=== PATIENT | male | born 1990 | race Caucasian/White ===

== ENCOUNTER 2016-02-22 22:41 | Emergency (ER) | payer OTHER ==
[2016-02-22 22:51] VITALS: BP 132/83; TEMP 98.4
[2016-02-22] MEDS ORDERED: methylPREDNISolone SOD SUCCI 125 MG/2 ML VIAL IV STA (23:01)
[2016-02-22] MEDS ORDERED: diphenhydrAMINE 50 MG/ML 1 ML VIAL IVP STA (23:01)
[2016-02-22] MEDS ORDERED: SODIUM CHLORIDE 0.9% 1,000 ML IV STA (23:01)
[2016-02-22] MEDS ORDERED: FAMOTIDINE 20 MG/2 ML VIAL IV STA (23:01)
--- NOTE | 2016-02-22 23:10 | ED ---
Allergic Reaction HPI - General Chief complaint: Allergic Reaction Stated complaint: allergic reaction-shrimp/swelling throat Time Seen by Provider: 02/22/16 22:52 Source: patient, RN notes reviewed Mode of arrival: ambulatory - History of Present Illness Initial Comments: 25-year-old male presents to the emergency Department chief complaint of concern for ALLERGIC reaction. Patient states that he ate shrimp tonight and then his face started to swell. Patient states he consumed that shrimp about 3 hours ago. Patient states he then started to have some facial swelling and he noticed some throat irritation. Patient states he took some Benadryl. Patient states he feels like he can breathe he just noticed a little tightness. Patient states his mother had similar reaction to shrimp. Patient states she's never had a reaction like this before. Patient states he is not currently having any other symptoms. Patient notes a itchy rash to the trunk. Patient denies any recent fever, chills, shortness of breath, chest pain, back pain, abdominal pain, nausea vomiting, numbness or tingling, dysuria or hematuria, constipation or diarrhea, headaches or visual changes, or any other current symptoms. - Related Data Previous Rx's Medication Instructions Recorded Famotidine [Pepcid] 20 mg PO BID #10 tablet 02/22/16 diphenhydrAMINE [Benadryl] 50 mg PO HS PRN #5 capsule 02/22/16 predniSONE 50 mg PO DAILY #5 tab 02/22/16 Allergies Allergy/AdvReac Type Severity Reaction Status Date / Time No Known Allergies Allergy Verified 02/22/16 22:51 Review of Systems ROS Statement: Those systems with pertinent positive or pertinent negative responses have been documented in the HPI. ROS Other: All systems not noted in ROS Statement are negative. Past Medical History Past Medical History: No Reported History History of Any Multi-Drug Resistant Organisms: None Reported Past Surgical History: Hernia Repair Past Psychological History: No Psychological Hx Reported Smoking Status: Current every day smoker Past Alcohol Use History: Occasional Past Drug Use History: None Reported General Exam General appearance: alert, in no apparent distress Head exam: Present: other (She does have swelling to the face and around the eyes.) Eye exam: Present: PERRL, EOMI ENT exam: Present: normal exam, mucous membranes moist Neck exam: Present: normal inspection. Absent: tenderness, meningismus, lymphadenopathy Respiratory exam: Present: normal lung sounds bilaterally. Absent: respiratory distress, wheezes, rales, rhonchi, stridor Cardiovascular Exam: Present: regular rate, normal rhythm, normal heart sounds. Absent: systolic murmur, diastolic murmur, rubs, gallop, clicks Back exam: Present: normal inspection Neurological exam: Present: alert, oriented X3, CN II-XII intact. Absent: motor sensory deficit Psychiatric exam: Present: normal affect, normal mood Skin exam: Present: warm, dry, intact, urticaria Course Vital Signs 02/22/16 22:48 Temperature 98.4 F Pulse Rate 117 H Respiratory 20 Rate Blood Pressure 132/83 O2 Sat by Pulse 96 Oximetry - Reevaluation(s) Reevaluation #1: 02/22/16 23:46 Patient states that he is feeling better at this time. Medical Decision Making - Medical Decision Making 25-year-old male presents emergency Department chief complaint of ALLERGIC reaction to shrimp. At this time patient does appear to be urticaria type rash. Patient also does appear to have redness to the face. At this time patient did receive that medication here and was watched for an hour. His symptoms aren't improving. This time we discussed continuing outpatient medications as prescribed. Recheck temperature and follow-up. She stated that he understood and all his questions have been answered. He will be discharged home at this time. Disposition Clinical Impression: Allergic reaction, Urticaria Disposition: HOME SELF-CARE Condition: Stable Instructions: Anaphylaxis (ED) Additional Instructions: Please use medication as discussed. Please follow up with family doctor if symptoms have not improved over the next two days. Please return to the emergency room if your symptoms increase or worsen or for any other concerns. Prescriptions: Famotidine [Pepcid] 20 mg PO BID #10 tablet diphenhydrAMINE [Benadryl] 50 mg PO HS PRN #5 capsule PRN Reason: Itching predniSONE 50 mg PO DAILY #5 tab Referrals: Jesus Abernathy MD [Primary Care Provider] - 1-2 days Time of Disposition: 23:46
[2016-02-23 00:13] VITALS: PULSE 95; RESP 16
== END 2016-02-23 00:10 | disposition home or self-care (01) ==
LOC: EC 22:41
DX: T78.1XXA Other adverse food reactions, not elsewhere classified, initial encounter (principal); L50.0 Allergic urticaria; F17.200 Nicotine dependence, unspecified, uncomplicated
CPT/HCPCS: 99284; 96374; 96375 ×2; 96361; J1200; J2930

== ENCOUNTER 2016-05-02 11:23 | Inpatient (IN) | payer OTHER ==
[2016-05-02] MEDS ORDERED: ONDANSETRON 4 MG/2 ML VIAL IVP STA (12:24)
[2016-05-02] MEDS ORDERED: SODIUM CHLORIDE 0.9% 1,000 ML IV STA ×2 (12:24)
[2016-05-02] MEDS ORDERED: FAMOTIDINE 20 MG/2 ML VIAL IV STA (12:24)
--- NOTE | 2016-05-02 12:27 | ED ---
General Adult HPI - General Chief complaint: Abdominal Pain Stated complaint: abdominal pain, sent by dr allen Time Seen by Provider: 05/02/16 12:19 Source: patient, RN notes reviewed Mode of arrival: ambulatory Limitations: no limitations - History of Present Illness Initial comments: Patient 25-year-old male who presents emergency room today with a chief complaint of symptoms of nausea vomiting and epigastric pain. He describes it as "burning". Patient does admit that he was at the doctor's office was given GI cocktail which did relieve his symptoms but on her last for approximately 15 minutes. He does admit to being a daily drinker states he had for 5 years last night before going to bed. This is not drinking this morning. He denies any other complaints or associated symptoms. Patient denies any recent fever, chills , shortness of breath, chest pain, back pain, numbness or tingling, dysuria or hematuria, constipation or diarrhea, headaches or visual changes, or any other complaints. Denies hematemesis. - Related Data Home Medications Medication Instructions Recorded Confirmed No Known Home Medications [No 05/02/16 05/02/16 Known Home Medications] Allergies Allergy/AdvReac Type Severity Reaction Status Date / Time Iodinated Contrast Media - Allergy Anaphylaxis Verified 05/02/16 12:06 Oral and shellfish derived [Shellfish] Allergy Anaphylaxis Verified 05/02/16 12:06 Review of Systems ROS Statement: Those systems with pertinent positive or pertinent negative responses have been documented in the HPI. ROS Other: All systems not noted in ROS Statement are negative. Past Medical History Past Medical History: No Reported History History of Any Multi-Drug Resistant Organisms: None Reported Past Surgical History: Hernia Repair Past Psychological History: No Psychological Hx Reported Smoking Status: Current every day smoker Past Alcohol Use History: Occasional Past Drug Use History: None Reported General Exam - General Exam Comments Initial Comments: General: The patient is awake and alert, in no distress, and does not appear acutely ill. Eye: Pupils are equal, round and reactive to light, extra-ocular movements are intact. No nystagmus. There is normal conjunctiva bilaterally. No signs of icterus. Ears, nose, mouth and throat: There are moist mucous membranes and no oral lesions. Neck: The neck is supple, there is no tenderness or JVD. Cardiovascular: There is a regular rate and rhythm. No murmur, rub or gallop is appreciated. Respiratory: Lungs are clear to auscultation, respirations are non-labored, breath sounds are equal. No wheezes, stridor, rales, or rhonchi. Gastrointestinal: Normal appearance abdomen. Normal bowel sounds. Abdomen soft on palpation. Patient does have mild tenderness epigastric and both left and right upper quadrants. No rebound tenderness. No guarding. No CVA tenderness. Musculoskeletal: Normal ROM, no tenderness. Strength 5/5. Sensation intact. Pulses equal bilaterally 2+. Neurological: A&O x 3. CN II-XII intact, There are no obvious motor or sensory deficits. Coordination appears grossly intact. Speech is normal. Skin: Skin is warm and dry and no rashes or lesions are noted. Psychiatric: Cooperative, appropriate mood & affect, normal judgment. Limitations: no limitations Course Vital Signs 05/02/16 05/02/16 11:58 13:25 Temperature 97.8 F 97.4 F L Pulse Rate 88 86 Respiratory 20 16 Rate Blood Pressure 130/79 147/74 O2 Sat by Pulse 99 100 Oximetry Medical Decision Making - Medical Decision Making Patient reexamined at this time shows no signs of distress. Resting comfortably in the stretcher feeling much more comfortable after IV fluids and pain medication. Patient's labs been reviewed shows mildly elevated AST ALT. Does admit to being a daily drinker. Patient does have elevation of amylase lipase greater than 700 and 6,000 respectively. His results were discussed with patient and his family at bedside. Patient will be admitted to the hospital for pancreatitis. Continued on IV fluids and pain medication. - Lab Data Result diagrams: 05/02/16 12:50 05/02/16 12:50 Lab Results 05/02/16 05/02/16 05/02/16 Range/Units 12:50 12:50 12:56 WBC 12.7 H (3.8-10.6) k/uL RBC 4.61 (4.30-5.90) m/uL Hgb 16.4 (13.0-17.5) gm/dL Hct 49.6 (39.0-53.0) % MCV 107.7 H (80.0-100.0) fL MCH 35.7 H (25.0-35.0) pg MCHC 33.1 (31.0-37.0) g/dL RDW 13.7 (11.5-15.5) % Plt Count 247 (150-450) k/uL Neutrophils % 90 % Lymphocytes % 4 % Monocytes % 5 % Eosinophils % 0 % Basophils % 0 % Neutrophils # 11.5 H (1.3-7.7) k/uL Lymphocytes # 0.4 L (1.0-4.8) k/uL Monocytes # 0.6 (0-1.0) k/uL Eosinophils # 0.1 (0-0.7) k/uL Basophils # 0.0 (0-0.2) k/uL Macrocytosis Moderate Sodium 145 (137-145) mmol/L Potassium 3.9 (3.5-5.1) mmol/L Chloride 103 (98-107) mmol/L Carbon Dioxide 21 L (22-30) mmol/L Anion Gap 21 mmol/L BUN 8 L (9-20) mg/dL Creatinine 0.75 (0.66-1.25) mg/dL Est GFR (MDRD) Af Amer >60 (>60 ml/min/1.73 sqM) Est GFR (MDRD) Non-Af >60 (>60 ml/min/1.73 sqM) Glucose 94 (74-99) mg/dL Calcium 10.7 H (8.4-10.2) mg/dL Total Bilirubin 1.1 (0.2-1.3) mg/dL AST 250 H (17-59) U/L ALT 184 H (21-72) U/L Alkaline Phosphatase 94 (38-126) U/L Total Protein 9.1 H (6.3-8.2) g/dL Albumin 5.5 H (3.5-5.0) g/dL Amylase 700 H* (30-110) U/L Lipase 6495 H (23-300) U/L Urine Color Dark Yellow Urine Appearance Clear (Clear) Urine pH 6.0 (5.0-8.0) Ur Specific [place] 1.026 (1.001-1.035) Urine Protein 2+ H (Negative) Urine Glucose (UA) Negative (Negative) Urine Ketones 3+ H (Negative) Urine Blood Trace H (Negative) Urine Nitrite Negative (Negative) Urine Bilirubin Negative (Negative) Urine Urobilinogen 2.0 (<2.0) mg/dL Ur Leukocyte Esterase Negative (Negative) Urine RBC 8 H (0-5) /hpf Ur Squamous Epith Cells 1 (0-4) /hpf Urine Mucus Many H (None) /hpf Disposition Clinical Impression: Acute pancreatitis Disposition: ADMITTED IP TO THIS HOSP Condition: Good Time of Disposition: 13:43
[2016-05-02 13:06] LABS: Basophils % (A) 0 %; CHCM 34.5; Eosinophils # (A) 0.1 k/uL (0-0.7); Eosinophils % (A) 0 %; HCT 49.6 % (39.0-53.0); HDW 2.17; HGB 16.4 gm/dL (13.0-17.5); Luc # (Auto) 0.11; Luc % (Auto) 1; Lymphocytes # (A) 0.4 k/uL (1.0-4.8); Lymphocytes % (A) 4 %; MCH 35.7 pg (25.0-35.0); MCHC 33.1 g/dL (31.0-37.0); MCV 107.7 fL (80.0-100.0); Macrocytosis Moderate; Mean Platelet Volume 7.5; Monocytes # (A) 0.6 k/uL (0-1.0); Monocytes % (A) 5 %; Neutrophils # (A) 11.5 k/uL (1.3-7.7); Neutrophils % (A) 90 %; RBC 4.61 m/uL (4.30-5.90); RDW 13.7 % (11.5-15.5); WBC 12.7 k/uL (3.8-10.6); WBC (Perox) 12.77
[2016-05-02] MEDS ORDERED: ACETAMINOPHEN IV (For NPO) 1,000 MG in SALINE 100 100ML.BAG IVPB STA (13:13)
[2016-05-02 13:15] LABS: ALT 184 U/L (21-72); AST 250 U/L (17-59); Alkaline Phosphatase 94 U/L (38-126); Anion Gap 21 mmol/L; Blood Urea Nitrogen 8 mg/dL (9-20); Calcium 10.7 mg/dL (8.4-10.2); Carbon Dioxide 21 mmol/L (22-30); Chloride 103 mmol/L (98-107); Glucose 94 mg/dL (74-99); Non-African American GFR(MDRD) >60 (>60 ml/min/1.73 sqM); Potassium 3.9 mmol/L (3.5-5.1); Sodium 145 mmol/L (137-145); Total Bilirubin 1.1 mg/dL (0.2-1.3); Total Protein 9.1 g/dL (6.3-8.2)
[2016-05-02 13:20] LABS: Appearance,Urine Clear (Clear); Bilirubin,Urine Negative (Negative); Glucose,Urine (UA) Negative (Negative); Ketones,Urine 3+ (Negative); Leukocyte Esterase,Urine Negative (Negative); Mucus,Urine Many /hpf; Nitrite,Urine Negative (Negative); Particle Count 13724; Protein,Urine 2+ (Negative); RBC,Urine 8 /hpf (0-5); Specific Gravity,Urine 1.026 (1.001-1.035); Squamous Epithelial Cell,Urine 1 /hpf (0-4); UA Billing (MACRO vs. MICRO) MICRO
[2016-05-02] MEDS ORDERED: LORazepam 2 MG/ML SYRINGE IV STA (13:26)
[2016-05-02 13:27] LABS: Amylase 700 U/L (30-110)
[2016-05-02] MEDS ORDERED: HYDROmorphone 1 MG/ML 1 ML SYRINGE IVP STA (13:27)
[2016-05-02] MEDS ORDERED: ONDANSETRON 4 MG/2 ML VIAL IVP PRN (13:53)
[2016-05-02] MEDS ORDERED: SODIUM CHLORIDE 0.9% 1,000 ML IV ONE (13:53)
[2016-05-02] MEDS ORDERED: NALOXONE 0.4 MG/ML 1 ML VIAL IV PRN (13:53)
[2016-05-02] MEDS ORDERED: THIAMINE 100 MG/ML 2 ML VIAL IM STA (13:55)
[2016-05-02] MEDS ORDERED: LORazepam 2 MG/ML SYRINGE IV PRN ×3 (13:55)
--- NOTE | 2016-05-02 14:35 | XR ---
Abdomen HISTORY: Upper abdomen pain Frontal view of the abdomen on 2 images No comparisons Lung bases are clear. There is no bowel obstruction or pneumoperitoneum. No pathologic calcification. Slight spinal curvature. IMPRESSION: No abnormalities evident
[2016-05-02] MEDS: THIAMINE 100 MG TAB PO SCH (16:30)
[2016-05-02] MEDS: HYDROmorphone 1 MG/ML 1 ML SYRINGE IV PRN ×3 (16:31→21:41)
[2016-05-02 17:55] LABS: Appearance,Urine Clear (Clear); Bilirubin,Urine Negative (Negative); Glucose,Urine (UA) Negative (Negative); Ketones,Urine 3+ (Negative); Leukocyte Esterase,Urine Negative (Negative); Nitrite,Urine Negative (Negative); PH, Urine 6.5 (5.0-8.0); Protein,Urine Negative (Negative); Specific Gravity,Urine 1.014 (1.001-1.035); UA Billing (MACRO vs. MICRO) CHEM; Urobilinogen,Urine <2.0 mg/dL (<2.0)
[2016-05-02] MEDS ORDERED: IOHEXOL 350 MG/ML 25 ML BOTTLE (ORAL USE) PO PRN (18:01)
[2016-05-02 18:24] LABS: INR 1.1 (<1.1)
[2016-05-02] MEDS: BARIUM SULFATE 450 ML ORAL.SUSP BOTTLE PO PRN ×2 (18:55→21:35)
[2016-05-02] MEDS: PANTOPRAZOLE 40 MG/10 ML VIAL IVP SCH (18:55)
[2016-05-02] MEDS ORDERED: SODIUM CHLORIDE 0.9% 1,000 ML BAG ONE (19:16)
[2016-05-02] MEDS: 1: MVI, ADULT NO.4 WITH VIT K 10 ML, THIAMINE 100 MG, FOLIC ACID 1 MG in SODIUM CHLORIDE IV SCH ×4 (19:16)
[2016-05-02] MEDS: HEPARIN SODIUM,PORCINE 5,000 UNIT/ML 1 ML VIAL SQ SCH (20:20)
--- NOTE | 2016-05-02 21:16 | HP ---
DATE OF ADMISSION: 05/02/2016 CHIEF COMPLAINT: Abdominal pain. HISTORY OF PRESENT ILLNESS: This 25-year-old gentleman with a past medical history of heartburn, history of hernia repair, history of motion sickness, being followed by Dr. Jesus Abernathy in the outpatient setting, apparently was drinking significantly. Patient smokes as well. The patient lives at home with his parents and one dog as well. The patient works in [employer] and the patient is also complaining of nausea, vomiting and severe epigastric pain which is described as burning. The GI cocktail did not relieve the symptoms completely, with some partial relief after 15 minutes. Because of concerns, patient was sent to [facility] and admitted for further evaluation and treatment. In the ER, white count was found to be 12.7 and the patient had multiple liver abnormalities, including AST of 250 and ALT 184, indicating alcoholic hepatitis. Amylase and lipase were increased, indicating acute pancreatitis. The patient was admitted for further evaluation and treatment. There is no history of any fever, rigor or chills, no history of headache, loss of consciousness, seizures at this time. PAST MEDICAL HISTORY: 1. History of heartburn. 2. History of hernia repair. 3. History of nicotine dependence as well as alcohol. MEDICATIONS: None. ALLERGIES: 1. IODINATED CONTRAST DYE. 2. SHELLFISH. FAMILY HISTORY: No history of heart disease or strokes in the family. SOCIAL HISTORY: History of smoking as well as alcohol intake, as mentioned earlier. REVIEW OF SYSTEMS: ENT: No diminished hearing. No diminished vision. CARDIOVASCULAR SYSTEM: No angina, palpitations. RESPIRATORY SYSTEM: No cough, hemoptysis. GI: As mentioned earlier. : No dysuria. NERVOUS SYSTEM: No numbness or weakness. ALLERGY/IMMUNOLOGY: No asthma, hayfever. MUSCULOSKELETAL: As mentioned earlier. HEMATOLOGY/ONCOLOGY: No history of anemia. ENDOCRINE: No history of diabetes, hypothyroidism. CONSTITUTIONAL: As mentioned earlier. DERMATOLOGY: Negative. RHEUMATOLOGY: Negative. PSYCHIATRY: As mentioned earlier. PHYSICAL EXAMINATION: Patient is alert and oriented x3. Pulse is 85. Blood pressure is 149/70, respiration 18, temperature 97.4, pulse ox 99% on room air. HEENT: Conjunctivae normal. Oral mucosa moist. NECK: No jugular venous distention. No carotid bruit. No lymph node enlargement. CARDIOVASCULAR SYSTEM: S1, S2 muffled. No S3. No S4. RESPIRATORY: Breath sounds diminished at the bases. A few scattered rhonchi and crackles. ABDOMEN: Soft. Diffuse tenderness in the epigastrium. No guarding. No rigidity. No mass palpable. No hepatosplenomegaly. No ascites. Bowel sounds present. LEGS: No edema. No swelling. NERVOUS SYSTEM: Higher functions as mentioned earlier. Moves all 4 limbs. No focal motor or sensory deficit. LYMPHATICS: No lymph node palpable in neck, axillae or groin. SKIN: No ulcer, rash, bleeding. JOINTS: No active deforming arthropathy. LABS: WBC 12.7. MCV 107.7. Calcium 10.7. AST is 250. ALT is 184. Amylase and lipase noted. ASSESSMENT: 1. Acute abdominal pain with acute severe pancreatitis. 2. Acute alcoholic hepatitis. 3. Increased AST, ALT, secondary to hepatitis. 4. Dehydration, present on admission. 5. Hypercalcemia secondary to dehydration. 6. Increased white count, possibly reactive. 7. Increased mean corpuscular volume, possibly secondary to ethanol. 8. Increased amylase, lipase, indicative of acute pancreatitis. 9. History of ethanol. 10. History of nicotine dependence. 11. History of gastroesophageal reflux disease. 12. History of motion sickness. 13. History of hernia repair. 14. FULL CODE. RECOMMENDATIONS AND DISCUSSION: In this 25-year-old gentleman who presented with multiple complex medical issues, we will monitor the patient closely, continue the current medication, continue symptomatic treatment. I recommend n.p.o. diet except medications. I would also get a gastroenterology consultation. I would also recommend a CT scan of the abdomen and pelvis without IV contrast because of the HISTORY OF ALLERGY. Other than that, alcohol cessation. WA protocol. Smoking cessation and Habitrol patch. DVT prophylaxis. IV fluids. Guarded prognosis because of multiple complex medical issues. Further recommendations to follow. A copy of this will be forwarded to Dr. Jesus Abernathy, who is the primary physician.
--- NOTE | 2016-05-02 23:15 | CT ---
History: Reason: pancreatitis Exam: CT ABDOMEN + PELVIS Without Contrast Comparison: None available Technique more: CTDIvol is 5.00 mGy and DLP is 252.50 mGy-cm FINDINGS: The lung bases are clear. Hepatic steatosis without evidence of focal lesion. The adrenal glands, kidneys, spleen, gallbladder and abdominal aorta appear within limits on non-infused imaging. No bowel dilation or free air. The bladder appears within limits. Mild diffuse-appearing peripancreatic stranding, edema extending into the transverse mesocolon and right greater than left pararenal spaces most consistent with pancreatitis. Small amount of lower abdomen and pelvic free fluid. IMPRESSION: Mild diffuse-appearing peripancreatic stranding, edema extending into the transverse mesocolon and right greater than left pararenal spaces most consistent with pancreatitis. Small amount of lower abdomen and pelvic free fluid. Hepatic steatosis without evidence of focal lesion.
[2016-05-03] MEDS: HYDROmorphone 1 MG/ML 1 ML SYRINGE IV PRN ×7 (01:41→21:13)
[2016-05-03] MEDS: 1: MVI, ADULT NO.4 WITH VIT K 10 ML, THIAMINE 100 MG, FOLIC ACID 1 MG in SODIUM CHLORIDE IV SCH ×20 (04:40→17:42)
[2016-05-03 08:17] LABS: Basophils % (A) 0 %; CH 36.1; CHCM 33.3; Eosinophils # (A) 0.1 k/uL (0-0.7); Eosinophils % (A) 1 %; HCT 47.3 % (39.0-53.0); HDW 2.11; HGB 15.4 gm/dL (13.0-17.5); Luc # (Auto) 0.14; Luc % (Auto) 1; Lymphocytes # (A) 0.7 k/uL (1.0-4.8); Lymphocytes % (A) 6 %; MCH 35.4 pg (25.0-35.0); MCHC 32.6 g/dL (31.0-37.0); MCV 108.7 fL (80.0-100.0); Macrocytosis Marked; Monocytes # (A) 0.9 k/uL (0-1.0); Monocytes % (A) 8 %; Neutrophils # (A) 9.7 k/uL (1.3-7.7); Neutrophils % (A) 84 %; RBC 4.35 m/uL (4.30-5.90); RDW 13.6 % (11.5-15.5); WBC 11.6 k/uL (3.8-10.6); WBC (Perox) 11.65
[2016-05-03] MEDS: HEPARIN SODIUM,PORCINE 5,000 UNIT/ML 1 ML VIAL SQ SCH ×2 (08:23→21:13)
[2016-05-03] MEDS: PANTOPRAZOLE 40 MG/10 ML VIAL IVP SCH (08:23)
[2016-05-03 08:28] LABS: ALT 113 U/L (21-72); AST 93 U/L (17-59); Alkaline Phosphatase 66 U/L (38-126); Anion Gap 14 mmol/L; Blood Urea Nitrogen 5 mg/dL (9-20); Calcium 9.3 mg/dL (8.4-10.2); Carbon Dioxide 24 mmol/L (22-30); Chloride 100 mmol/L (98-107); Cholesterol 172 mg/dL (<200); Glucose 84 mg/dL (74-99); HDL Cholesterol 81 mg/dL (40-60); Non-African American GFR(MDRD) >60 (>60 ml/min/1.73 sqM); Potassium 4.3 mmol/L (3.5-5.1); Sodium 138 mmol/L (137-145); Total Protein 7.1 g/dL (6.3-8.2); Triglycerides 78 mg/dL (<150)
[2016-05-03 08:36] LABS: Amylase 362 U/L (30-110)
--- NOTE | 2016-05-03 08:40 | XR ---
EXAMINATION TYPE: XR chest 1V portable DATE OF EXAM: 05/03/2016 8:31 AM CLINICAL HISTORY: Pancreatitis and CHF. TECHNIQUE: Single AP portable frontal upright view of the chest is obtained. COMPARISON: None FINDINGS: There is no focal air space opacity, pleural effusion, or pneumothorax seen. The cardiac silhouette size is within normal limits. The osseous structures are intact. IMPRESSION: No acute process.
[2016-05-03 09:52] LABS: Manual Review Performed
[2016-05-03] MEDS: THIAMINE 100 MG TAB PO SCH ×2 (11:29→17:40)
[2016-05-03] MEDS ORDERED: SODIUM CHLORIDE 0.9% 1,000 ML BAG ONE (11:31)
[2016-05-04] MEDS: HYDROmorphone 1 MG/ML 1 ML SYRINGE IV PRN ×5 (00:19→21:44)
[2016-05-04] MEDS ORDERED: SODIUM CHLORIDE 0.9% 1,000 ML BAG ONE ×2 (00:20)
[2016-05-04] MEDS: 1: MVI, ADULT NO.4 WITH VIT K 10 ML, THIAMINE 100 MG, FOLIC ACID 1 MG in SODIUM CHLORIDE IV SCH ×12 (00:20→14:22)
[2016-05-04] MEDS: HEPARIN SODIUM,PORCINE 5,000 UNIT/ML 1 ML VIAL SQ SCH ×2 (07:55→21:45)
[2016-05-04] MEDS: PANTOPRAZOLE 40 MG/10 ML VIAL IVP SCH (07:55)
[2016-05-04 10:17] LABS: ALT 86 U/L (21-72); AST 59 U/L (17-59); Alkaline Phosphatase 61 U/L (38-126); Amylase 103 U/L (30-110); Anion Gap 12 mmol/L; Blood Urea Nitrogen 4 mg/dL (9-20); Calcium 9.2 mg/dL (8.4-10.2); Carbon Dioxide 26 mmol/L (22-30); Chloride 98 mmol/L (98-107); Glucose 116 mg/dL (74-99); Non-African American GFR(MDRD) >60 (>60 ml/min/1.73 sqM); Potassium 3.9 mmol/L (3.5-5.1); Sodium 136 mmol/L (137-145); Total Bilirubin 0.9 mg/dL (0.2-1.3); Total Protein 6.5 g/dL (6.3-8.2)
[2016-05-04 10:28] LABS: Basophils % (A) 0 %; CHCM 33.2; Eosinophils # (A) 0.1 k/uL (0-0.7); Eosinophils % (A) 2 %; HCT 43.5 % (39.0-53.0); HDW 2.18; HGB 14.7 gm/dL (13.0-17.5); Luc # (Auto) 0.13; Luc % (Auto) 2; Lymphocytes # (A) 0.6 k/uL (1.0-4.8); Lymphocytes % (A) 10 %; MCH 36.6 pg (25.0-35.0); MCHC 33.7 g/dL (31.0-37.0); MCV 108.7 fL (80.0-100.0); Macrocytosis Moderate; Mean Platelet Volume 7.2; Monocytes # (A) 0.5 k/uL (0-1.0); Monocytes % (A) 8 %; Neutrophils # (A) 4.7 k/uL (1.3-7.7); Neutrophils % (A) 77 %; RBC 4.01 m/uL (4.30-5.90); RDW 13.4 % (11.5-15.5); WBC 6.1 k/uL (3.8-10.6); WBC (Perox) 6.38
--- NOTE | 2016-05-04 10:32 | PN ---
DATE OF SERVICE: 05/03/2016 This 25-year-old gentleman admitted with abdominal pain has significant acute pancreatitis, possibly related to alcohol. The amylase and lipase are being closely monitored. The patient is on n.p.o at this time. CT scan showed mild diffuse appearing pancreatic stranding and edema extending to the transverse and right greater than left pararenal space mostly consistent with pancreatitis. There is no history of fever, rigors. No history of headache, loss of consciousness. PAST MEDICAL HISTORY: Reviewed. REVIEW OF SYSTEMS: CARDIOVASCULAR: No angina. RESPIRATORY: Occasional cough. GI: As mentioned. : No dysuria. NERVOUS SYSTEM: No numbness or weakness. Current medications are reviewed and include: 1. Heparin 5000 subcu b.i.d. 2. Dilaudid 1 mg q.3 p.r.n. 3. Ativan CIWA protocol. 4. Narcan 0.2 q.2 p.r.n. 5. Protonix 40 mg daily. 6. Multivitamin supplementation with thiamin 100 mg daily. PHYSICAL EXAMINATION: Alert and oriented x3. Pulse 85, blood pressure 141/62, respiration 18, temperature 98 degrees. Pulse 99% on room air. HEENT: Conjunctivae normal. Oral mucosa moist. NECK: No jugular venous distention. No carotid bruit. No lymph node enlargement. CARDIOVASCULAR: S1 and S2. RESPIRATORY: Breath sounds diminished at the bases. No rhonchi, no crackles. ABDOMEN: Soft, mild diffuse tenderness in the epigastrium. No mass palpable. LEGS: No edema, no swelling. NERVOUS SYSTEM: Higher function as mentioned. Moves all four limbs. No focal motor deficits. LYMPHATIC: No lymphadenopathy in the neck, axillae or groin. SKIN: No ulcer, rash or bleeding. LABS: WBC 11.6. MCV 102.7. Otherwise, ALT is 113 and AST is 93, amylase is 362 and lipase is 2013. THC is positive. ASSESSMENT: 1. Acute abdominal pain with acute severe pancreatitis. 2. Acute alcoholic hepatitis. 3. Increased AST, ALT secondary to acute hepatitis. 4. Dehydration present on admission. 5. Hypercalcemia secondary to dehydration, present admission. 6. Increased WBC, possibly reactive. 7. Increased mean corpuscular volume, possibly related to EtOH. 8. Increased amylase, lipase indicative for acute pancreatitis. 9. History of EtOH. 10. History of nicotine dependence. 11. History of gastroesophageal reflux disease. 12. History of motion sickness. 13. History of hernia repair. 14. FULL CODE. RECOMMENDATIONS AND DISCUSSION: I recommend to continue current medications, continue monitoring, symptomatic treatment. Otherwise at this time I recommend continue with monitoring amylase, lipase. Initiate clear liquids, low fat and symptomatic treatment will be provided. Also recommend evaluation by Dr. Epps and continued monitoring as well. Once again the prognosis is guarded because of multiple complex medical issues. Further recommendations to follow. MTDD
[2016-05-04] MEDS: THIAMINE 100 MG TAB PO SCH ×2 (12:57→17:43)
[2016-05-05] MEDS: HYDROmorphone 1 MG/ML 1 ML SYRINGE IV PRN ×3 (00:34→09:04)
[2016-05-05] MEDS: 1: MVI, ADULT NO.4 WITH VIT K 10 ML, THIAMINE 100 MG, FOLIC ACID 1 MG in SODIUM CHLORIDE IV SCH ×4 (05:41)
[2016-05-05] MEDS ORDERED: SODIUM CHLORIDE 0.9% 1,000 ML BAG ONE (05:41)
[2016-05-05 07:45] VITALS: BP 126/85; PULSE 90; RESP 22; TEMP 97.8
[2016-05-05] MEDS: PANTOPRAZOLE 40 MG/10 ML VIAL IVP SCH (09:04)
[2016-05-05] MEDS: HEPARIN SODIUM,PORCINE 5,000 UNIT/ML 1 ML VIAL SQ SCH (09:04)
--- NOTE | 2016-05-05 10:02 | PN ---
DATE OF SERVICE: 05/04/2016 This 25-year-old gentleman who was admitted with acute abdominal pain, acute history of pancreatitis, is being closely monitored at this time. The enzymes are improving significantly. No chest pain or palpitations. No fever. On exam, alert, oriented x3. Pulse is 80, blood pressure 120/60, respirations 16, temperature 98.3, pulse ox 94% on room air. HEENT: Conjunctivae normal. NECK: No JVD. CARDIOVASCULAR: S1 and S2 muffled. LUNGS: Breath sounds diminished at the bases. No rhonchi, no crackles. ABDOMEN: Soft, nontender. Mild diffuse tenderness in the epigastrium. No mass palpable. LEGS: No edema, no swelling. NERVOUS SYSTEM: No focal deficits. LABS: WBC 6.1, hemoglobin is 14.9, MCV 108.7. Sodium 136. ALT is 86. Amylase 103. Lipase 659. positive. ASSESSMENT: 1. Acute abdominal pain with history of pancreatitis. 2. Acute alcoholic hepatitis. 3. Increased AST and ALT secondary to acute hepatitis. 4. Dehydration present on admission. 5. Hypertension secondary to dehydration, present on admission. 6. Increased WBC, possibly reactive. 7. Increased MCV, possibly related to EtOH. 8. Increased amylase and lipase, indicative of acute pancreatitis. 9. History of EtOH. 10. History nicotine dependence. 11. History of GERD. 12. History of motion sickness. 13. History of hernia repair. RECOMMENDATIONS: Recommend to continue current medications, continue with monitoring and symptomatic treatment. Otherwise at this time I would recommend advancing the diet and continue to monitor. Repeat labs. The family is planning rehab as an outpatient. Prognosis is guarded. Discussed with patient and family. Further recommendations to follow. MTDD
[2016-05-05 10:24] LABS: Basophils % (A) 0 %; CH 36.3; CHCM 33.7; Eosinophils # (A) 0.2 k/uL (0-0.7); Eosinophils % (A) 3 %; HCT 45.2 % (39.0-53.0); HDW 2.28; HGB 14.8 gm/dL (13.0-17.5); Luc # (Auto) 0.21; Luc % (Auto) 4; Lymphocytes # (A) 0.8 k/uL (1.0-4.8); Lymphocytes % (A) 16 %; MCH 35.4 pg (25.0-35.0); MCHC 32.7 g/dL (31.0-37.0); MCV 108.2 fL (80.0-100.0); Macrocytosis Moderate; Mean Platelet Volume 7.8; Monocytes # (A) 0.5 k/uL (0-1.0); Monocytes % (A) 9 %; Neutrophils # (A) 3.6 k/uL (1.3-7.7); Neutrophils % (A) 68 %; RBC 4.18 m/uL (4.30-5.90); RDW 13.4 % (11.5-15.5); WBC 5.3 k/uL (3.8-10.6)
[2016-05-05 10:39] LABS: ALT 97 U/L (21-72); AST 97 U/L (17-59); Alkaline Phosphatase 70 U/L (38-126); Amylase 61 U/L (30-110); Anion Gap 12 mmol/L; Blood Urea Nitrogen 5 mg/dL (9-20); Calcium 9.2 mg/dL (8.4-10.2); Carbon Dioxide 26 mmol/L (22-30); Chloride 101 mmol/L (98-107); Glucose 112 mg/dL (74-99); Non-African American GFR(MDRD) >60 (>60 ml/min/1.73 sqM); Potassium 4.1 mmol/L (3.5-5.1); Sodium 139 mmol/L (137-145); Total Bilirubin 0.9 mg/dL (0.2-1.3); Total Protein 6.8 g/dL (6.3-8.2)
[2016-05-05] MEDS: THIAMINE 100 MG TAB PO SCH (11:46)
--- NOTE | 2016-05-06 15:17 | DS ---
DATE OF ADMISSION: 05/02/2016 DATE OF DISCHARGE: 05/05/2016 FINAL DIAGNOSES: 1. Acute abdominal pain with acute severe pancreatitis, possibly secondary to ETOH. 2. Acute alcoholic hepatitis. 3. Increased AST secondary to acute hepatitis. 4. Dehydration, present on admission. 5. Hypertension present on admission improved. 6. Increased WBC, possibly reactive. 7. Increased mean corpuscular volume, possibly related to ETOH. 8. Increased amylase and lipase indicative of acute pancreatitis. 9. History of ETOH. 10. History of nicotine dependence. 11. History of gastroesophageal reflux disease. 12. History of motion sickness. 13. History of hernia repair. DISCHARGE DISPOSITION: The patient will be discharged in stable condition with guarded prognosis. HISTORY OF PRESENT ILLNESS: This 25 -year-old gentleman was admitted with abdominal pain, features of acute pancreatitis and alcohol. The patient was treated symptomatically. Patient improved significantly. Patient is followed by Dr. Jesus Abernathy in the outpatient setting. On exam, vital signs are stable. CARDIOVASCULAR SYSTEM: S1, S2 muffled essential. ABDOMEN: Soft. Nervous system: No focal deficits. DISCHARGE ADVICE AND MEDICATIONS: 1. Diet is soft, bland. 2. No ETOH. 3. To attend rehab and AA meetings. 4. Medications are Pepcid 20 mg p.o. daily. 5. Folic acid 1 mg daily. 6. [place] 5 mg q.6 p.r.n. 7. Ativan 0.5 mg t.i.d. p.o. daily. 8. Multivitamins one p.o. daily. 9. Thiamine 100 mg p.o. daily. Once again, the patient will be discharged in a stable condition with guarded prognosis.
== END 2016-05-05 13:20 | disposition home or self-care (01) | DRG 440 ==
LOC: EC 11:23 → 4MS4W 14:01
PROVIDERS: ADMIT Family Medicine; ATTEND Family Medicine
PROC: HZ2ZZZZ Detoxification Services for Substance Abuse Treatment (ICD-10-PCS; principal; 2016-05-02)
DX: K85.20 Alcohol induced acute pancreatitis without necrosis or infection (principal); K70.10 Alcoholic hepatitis without ascites; E83.52 Hypercalcemia; I10 Essential (primary) hypertension; E86.0 Dehydration; R12 Heartburn; K21.9 Gastro-esophageal reflux disease without esophagitis; D72.829 Elevated white blood cell count, unspecified; F17.200 Nicotine dependence, unspecified, uncomplicated; Z91.041 Radiographic dye allergy status; Z91.013 Allergy to seafood; Z71.6 Tobacco abuse counseling
CPT/HCPCS: 36415; 71010; 74000; 74176; 80053; 80061; 80306; 81001; 81003; 82150; 83690; 85025; 85610; 96361; 96372; 96374; 96375; 99285

== ENCOUNTER → 2023-05-28 | Outpatient (CLI) | payer BC ==
--- NOTE | 2023-05-29 09:59 | CA ---
Transthoracic Echo Report Name: Quinten Tapia Age: 32 Gender: M : 1990 Exam Date: 05/28/2023 17:19 Exam Location: [place] [facility] Ht (in): 68 Wt (lb): 130 Ordering Physician: Jose L Murphy DO Attending/Referring Phys: Emergency Department Nurse Sera Arellano RDCS Procedure CPT: Indications: R07.89 other chest pain Cardiac Hx: smoker Technical Quality: Fair Contrast 1: Total Dose (mL): Contrast 2: Total Dose (mL): MEASUREMENTS (Male / Female) Normal Values 2D ECHO LV Diastolic Diameter PLAX 3.8 cm 4.2 - 5.9 / 3.9 - 5.3 cm LV Systolic Diameter PLAX 2.6 cm IVS Diastolic Thickness 0.8 cm 0.6 - 1.0 / 0.6 - 0.9 cm LVPW Diastolic Thickness 1.0 cm 0.6 - 1.0 / 0.6 - 0.9 cm LV Relative Wall Thickness 0.5 RV Internal Dim ED PLAX 2.2 cm LA Systolic Diameter LX 2.5 cm 3.0 - 4.0 / 2.7 - 3.8 cm M-MODE Aortic Root Diameter MM 2.6 cm MV E Point Septal Separation 1.1 cm DOPPLER AV Peak Velocity 111.1 cm/s AV Peak Gradient 4.9 mmHg MV Area PHT 3.6 cm??? Mitral E Point Velocity 92.3 cm/s Mitral A Point Velocity 76.1 cm/s Mitral E to A Ratio 1.2 MV Deceleration Time 213.3 ms FINDINGS Left Ventricle Left ventricular ejection fraction is estimated at 50-55 %. Small left ventricular cavity. Left ventricular wall thickness normal. No obvious regional wall motion abnormalities. Right Ventricle Normal right ventricular size. Unable to estimate the right ventricular systolic pressure. Right Atrium Normal right atrial size. Left Atrium Normal left atrial size. Mitral Valve Structurally normal mitral valve. No mitral stenosis, regurgitation or prolapse. Aortic Valve Aortic valve not well visualized. No aortic valve stenosis or regurgitation. Tricuspid Valve Structurally normal tricuspid valve. Trace tricuspid regurgitation. Pulmonic Valve Pulmonic valve not well visualized. Pericardium No pericardial effusion. Aorta Normal size aortic root and proximal ascending aorta. CONCLUSIONS Technically suboptimal study. Endocardial margins are not well seen. Left ventricle systolic function is well-preserved. Valve structures are poorly seen no pericardial effusion. This is a suboptimal study Previewed by: Dr. Easton Carrera MD (Electronically Signed) Final Date: 29 May 2023 09:59
== END | disposition home or self-care (01) ==
LOC: RADECHMAIN 16:46
PROVIDERS: ATTEND Internal Medicine
DX: R07.89 Other chest pain (principal)
CPT/HCPCS: 93306

== ENCOUNTER → 2024-03-15 | Outpatient (CLI) | payer BC ==
--- NOTE | 2024-03-15 10:45 | XR ---
EXAMINATION TYPE: XR chest 2V DATE OF EXAM: 03/15/2024 10:22 AM COMPARISON: 05/03/2016 CLINICAL INDICATION: Male, 33 years old with history of J06.9 acute URI, , TECHNIQUE: Frontal and lateral views FINDINGS: Heart normal size. Aorta and pulmonary vasculature within normal limits. No consolidation or pleural effusion. IMPRESSION: No acute cardiopulmonary process. [facility], Workstation: [email or web address], 03/15/2024 10:42 AM
== END | disposition home or self-care (01) ==
LOC: RADXRMAIN 10:14
PROVIDERS: ATTEND Internal Medicine
DX: J06.9 Acute upper respiratory infection, unspecified (principal)
CPT/HCPCS: 71046